=== PATIENT | female | born 1955 | race Caucasian/White ===

== ENCOUNTER 2020-06-05 22:54 | Emergency (ER) | payer BC ==
--- NOTE | 2020-06-05 23:56 | ER ---
Nurse's Notes [facility] Name: Bridget Silveira Age: 65 yrs Sex: Female : 1955 Arrival Date: 06/05/2020 Time: 22:54 Bed External Waiting Private MD: Diagnosis: Presentation: 06/05 23:11 Acuity: DAVE 3 sg ED Course: :54 Patient arrived in ED. cf2 23:11 Triage completed. sg Administered Medications: No medications were administered Outcome: 23:56 Patient left the ED. sg Signatures: Oskar Llanos RN RN Greg Luu cf2
== END 2020-06-05 23:56 | disposition left against medical advice (07) ==
LOC: ER 22:54
DX: Z53.21 Procedure and treatment not carried out due to patient leaving prior to being seen by health care provider (principal)
CPT/HCPCS: 99281